=== PATIENT | male | born 1955 | race Caucasian/White ===

== ENCOUNTER → 2017-05-01 | Outpatient (CLI) | payer BC ==
--- NOTE | 2017-05-02 12:41 | RADRPT ---
PROCEDURE: XR Chest 2 Views CLINICAL INDICATION: Cough and fever TECHNIQUE: Frontal and lateral views of the chest were obtained COMPARISON: None FINDINGS: The cardiac size is normal. Mild at aortic vascular calcifications are demonstrated. No pulmonary vascular congestion is demonstrated. The lungs are clear. No consolidation, effusion, or pneumothorax. Mild degenerative changes of the visualized osseous structures are visualized. IMPRESSION: 1. No acute cardiopulmonary process. 2. Atherosclerosis. RPTAT:PP .Roman Arrington MD, MD Date Time Electronically viewed and signed by .Roman Arrington MD, on 05/02/2017 12:41 .V/
== END | disposition home or self-care (01) ==
LOC: RAD 12:32
PROVIDERS: ATTEND Family Medicine
DX: R05 Cough (principal); R50.9 Fever, unspecified
CPT/HCPCS: 71020